=== PATIENT | male | born 1985 | race Two or more races ===

== ENCOUNTER 2019-09-27 01:06 | Emergency (ER) | payer OTHER ==
[2019-09-27] MEDS ORDERED: NORMAL SALINE 1000 ML 1,000 ML IV ONE (01:37)
--- NOTE | 2019-09-27 01:40 | ER Document Report ---
ED General - General Chief Complaint: Chest Pain Stated Complaint: CHEST PAIN/SHORTNESS OF BREATH Time Seen by Provider: 09/27/19 01:12 Notes: Patient is a 33-year-old male that comes emergency department for chief complaint of an aching feeling over his chest, sharper pain when he takes a deep breath, and then general aches over his mid to lower back and wrapping around to his abdomen. He states symptoms started yesterday but became much more noticeable especially with the pain with deep breathing tonight. He denies fever, cough, congestion, nausea, vomiting, injury. 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 He denies any obvious sick exposures. He takes no daily medications, denies, smoking, alcohol, recreational drugs, denies any medications except Lexapro, trazodone, clonidine. - Related Data Allergies/Adverse Reactions: sulfamethoxazole [From Bactrim] Allergy (Verified 09/27/19 01:15) trimethoprim [From Bactrim] Allergy (Verified 09/27/19 01:15) Home Medications: LEXAPRO, TRAZADONE, CLONIDINE Past Medical History - General Information source: Patient - Social History Smoking Status: Former Smoker Frequency of alcohol use: Social Drug Abuse: None Lives with: Family Family History: Reviewed & Not Pertinent Patient has suicidal ideation: No Patient has homicidal ideation: No Psychiatric Medical History: Reports: Hx Depression Surgical Hx: Negative - Immunizations Immunizations up to date: Yes Hx Diphtheria, Pertussis, Tetanus Vaccination: Yes Review of Systems - Review of Systems Constitutional: See HPI EENT: No symptoms reported Cardiovascular: See HPI Respiratory: See HPI Gastrointestinal: See HPI Genitourinary: No symptoms reported Male Genitourinary: No symptoms reported Musculoskeletal: No symptoms reported Skin: No symptoms reported Hematologic/Lymphatic: No symptoms reported Neurological/Psychological: No symptoms reported Physical Exam - Vital signs Vitals: Pulse Ox 98 09/27/19 01:13 - Notes Notes: GENERAL: Alert, interacts well. No acute distress. HEAD: Normocephalic, atraumatic. EYES: Pupils equal, round, and reactive to light. Extraocular movements intact. ENT: Oral mucosa moist, tongue midline. Oropharynx unremarkable. Airway patent. Nares patent, sinuses non-tender, ear canals unremarkable, TM's intact. NECK: Full range of motion. Supple. Trachea midline. No lymphadenopathy. LUNGS: Clear to auscultation bilaterally, no wheezes, rales, or rhonchi. No respiratory distress. Non-tender chest wall. Patient is noted to have pain with deep breath but otherwise unremarkable. HEART: Regular rate and rhythm. No murmur ABDOMEN: Soft, non-tender. Non-distended. Bowel sounds present in all 4 quadrants. EXTREMITIES: Moves all 4 extremities spontaneously. No edema, normal radial and dorsalis pedis pulses bilaterally. No cyanosis. BACK: no cervical, thoracic, lumbar midline tenderness. No saddle anesthesia, normal distal neurovascular exam. Moves all extremities in full range of motion. NEUROLOGICAL: Alert and oriented x3. Normal speech. Cranial nerves II through XII grossly intact. Strength 5/5 in all extremities. PSYCH: Normal affect, normal mood. SKIN: Warm, dry, normal turgor. No rashes or lesions noted. Course - Re-evaluation Re-evalutation: Patient is well-appearing on exam. His vital signs are unremarkable. His physical exam including ENT, lung, abdominal, skin, and mucous membranes is no rmal except for some pleuritic chest pain with deep breaths. Symptoms started yesterday. CBC, chemistry unremarkable, troponin negative despite symptoms for over 24 hours, EKG is normal without signs of pericarditis, chest x-ray is normal without pneumothorax, pneumonia, or other concerning abnormality. CK is slightly elevated, patient was initially given IV fluids. Urine unremarkable. On reevaluation patient remains very well-appearing. I discussed his pleuritic pain, body aches, and I feel this is most likely a viral illness based on his negative work-up and evaluation. Patient has no lower extremity swelling, recent travel, tachycardia, hypoxia, or risk factors for pulmonary embolism. I discussed pleurisy, decision was made to give him Toradol and dexamethasone now, discussed expectations, follow-up, and return precautions. Patient does not have any particular exposures or risk factors for the coronavirus, he is but [place] and has not been traveling recently at all. He also has had no fever, sore throat, cough. Decision was made after discussion with patient not to perform testing but to have patient isolate regardless. Patient states understanding and agreement with this plan. Stable and well- appearing at time of discharge. - Vital Signs Vital signs: Temp Pulse Resp BP Pulse Ox 98.4 F 98 14 117/78 99 09/27/19 02:19 09/27/19 01:15 09/27/19 04:01 09/27/19 04:00 09/27/19 04:01 - Laboratory Result Diagrams: 09/27/19 01:32 09/27/19 02:24 Laboratory results interpreted by me: 09/27/19 09/27/19 01:32 02:24 WBC 12.5 H MCHC 36.1 H Absolute Neuts (auto) 8.9 H Sodium 136.3 L Anion Gap 4 L Creatine Kinase 241 H - EKG Interpretation by Me Additional EKG results interpreted by me: EKG shows sinus rhythm at a rate of 66, QTC 420, RI interval 180, normal axis, no T wave inversions or ST segment changes in consecutive leads, no RI interval depressions. Discharge - Discharge Clinical Impression: Body aches, Pleuritic chest pain Condition: Stable Disposition: HOME, SELF-CARE Additional Instructions: Your work-up does not show any concerning findings. Your symptoms are consistent with pleurisy as we discussed, you have been treated initially for this, you can take 600 mg of ibuprofen and 1000 mg of Tylenol every 6 hours to help with your symptoms. Drink plenty of fluids and rest. This should simply resolve. It is very likely that you are fighting a viral illness based on your symptoms, recommendation is two-week quarantine to avoid spreading this. Return if you worsen including spiking fevers, difficulty breathing, or any other concerning or worsening symptoms. Pleurisy Your chest pain has been diagnosed as pleuritis (pleurisy). This is an i nflammation of the surface of the lung tissue. It can be caused by a virus or, your own immune system, etc. It is painful but, for the most part, not a serious problem. This pain is usually made worse by deep breathing, coughing, or sudden movements of the upper body or arms. The treatment is relief of symptoms. It includes rest, antiinflammatory medication, and pain medicine. Resolution of the pain is usually rapid once antiinflammatory medication is started. Warning signs of a more serious problem include: a fever, shortness of breath, pain that radiates to your jaw, shoulders or arms, or coughing up bloody sputum. If any of these symptoms occur, call the physician at once.
[2019-09-27 01:56] LABS: APPEARANCE,URINE CLEAR; BILIRUBIN,URINE NEGATIVE (NEGATIVE); COLOR,URINE STRAW; GLUCOSE, URINE NEGATIVE (NEGATIVE); KETONES,URINE NEGATIVE (NEGATIVE); LEUKOCYTE ESTERASE,URINE NEGATIVE (NEGATIVE); NITRITE,URINE NEGATIVE (NEGATIVE); PROTEIN,URINE NEGATIVE (NEGATIVE); URINE SPECIFIC GRAVITY 1.009; UROBILINOGEN,URINE NEGATIVE mg/dL (<2.0)
[2019-09-27 02:07] LABS: ABSOLUTE EOSINOPHILS # (AUTO) 0.1 10^3/uL (0.0-0.6); ABSOLUTE LYMPHOCYTES (AUTO) 2.1 10^3/uL (0.5-4.7); ABSOLUTE MONOCYTES (AUTO) 1.3 10^3/uL (0.1-1.4); ABSOLUTE NEUT (AUTO) 8.9 10^3/uL (1.7-8.2); BASOPHILS % (AUTO) 0.2 % (0-2); EOSINOPHILS % (AUTO) 0.6 % (0-6); HEMATOCRIT 44.6 % (37.9-51.0); HEMOGLOBIN 16.1 g/dL (13.5-17.0); LYMPHOCYTES % (AUTO) 17.1 % (13-45); MEAN CORPUSCULAR HEMOGLOBIN 33.1 pg (27.0-33.4); MEAN CORPUSCULAR HGB CONC 36.1 g/dL (32.0-36.0); MEAN CORPUSCULAR VOLUME 92 fl (80-97); MONOCYTES % (AUTO) 10.5 % (3-13); PLATELET COUNT 204 10^3/uL (150-450); RED BLOOD COUNT 4.87 10^6/uL (4.35-5.55); RED CELL DISTRIBUTION WIDTH 12.9 % (11.5-14.0); SEGMENTED NEUTROPHILS % (AUTO) 71.6 % (42-78); TOTAL CELLS COUNTED % (AUTO) 100 %; WHITE BLOOD COUNT 12.5 10^3/uL (4.0-10.5)
[2019-09-27 02:55] LABS: ALBUMIN 3.9 g/dL (3.5-5.0); ALKALINE PHOSPHATASE 50 U/L (38-126); ASPARTATE AMINO TRANSFERASE 26 U/L (17-59); BILIRUBIN,TOTAL 0.7 mg/dL (0.2-1.3); BLOOD UREA NITROGEN 16 mg/dL (7-20); CALCIUM 8.8 mg/dL (8.4-10.2); CREATINE KINASE 241 U/L (55-170); GLUCOSE 100 mg/dL (75-110); POTASSIUM 3.6 mmol/L (3.6-5.0); TOTAL PROTEIN 6.8 g/dL (6.3-8.2)
[2019-09-27 03:00] LABS: CARBON DIOXIDE 28 mmol/L (22-30); CHLORIDE 104 mmol/L (98-107)
[2019-09-27 03:18] LABS: ANION GAP 4 (5-19)
[2019-09-27] MEDS ORDERED: KETOROLAC TROMETHAMINE INJ/PF 30 MG/1 ML SDV IV ONE (03:43)
--- NOTE | 2019-09-27 03:54 | RADIOLOGY REPORT (SQ) ---
EXAM DESCRIPTION: XR CHEST 1 VIEW COMPLETED DATE/TME: 09/27/2019 01:13 CLINICAL HISTORY: 33 years, Male, sob COMPARISON: None. NUMBER OF VIEWS: 1 TECHNIQUE: Portable chest LIMITATIONS: None. FINDINGS: The heart size is normal. Lungs are clear. No pneumothorax IMPRESSION: Negative chest copyright 2011 [employer]- All Rights Reserved
[2019-09-27] MEDS ORDERED: DEXAMETHASONE SOD PHOS INJ 10 MG/1 ML VIAL IV ONE (04:04)
[2019-09-27 04:35] VITALS: BP 117/78
== END 2019-09-27 04:45 | disposition home or self-care (01) ==
LOC: ER 01:06
DX: R07.81 Pleurodynia (principal); R07.1 Chest pain on breathing; M54.5 Low back pain; R10.9 Unspecified abdominal pain; F32.9 Major depressive disorder, single episode, unspecified; Z79.899 Other long term (current) drug therapy; Z87.891 Personal history of nicotine dependence; Z88.1 Allergy status to other antibiotic agents
CPT/HCPCS: 99284; 96361; 96374; 96375; 36415; 82550; 83690; 85025; 80053; 81001; 84484; 71045; J1885; J7030; J1100